=== PATIENT | male | born 1995 | race American Indian/Alaskan Native ===

== ENCOUNTER 2018-12-29 15:48 | Inpatient (IN) | payer OTHER ==
--- NOTE | 2018-12-29 16:06 | Event Note ---
ED Screening Note ED Screening Note: presents for CP and SOB for a week left sided CP feels like tightness no n/v no diaphoresis no leg swelling no radiation of the pain PMHx CKD, HTN takes amlodipine, hydralazine, labatelol states he is only out of amlodipine but took his other meds non smoker non drinker This initial assessment/diagnostic orders/clinical plan/treatment(s) is/are subject to change based on patients health status, clinical progression and re- assessment by fellow clinical providers in the ED. Further treatment and workup at subsequent clinical providers discretion. Patient/guardian urged not to elope from the ED as their condition may be serious if not clinically assessed and managed. Initial orders include: CP protocol
--- NOTE | 2018-12-29 16:59 | XRay Report ---
CHEST 2 VIEWS INDICATION / CLINICAL INFORMATION: Chest pain. COMPARISON: 2 views of the chest from 01/07/2018. FINDINGS: SUPPORT DEVICES: None. HEART / MEDIASTINUM: Stable. LUNGS / PLEURA: Generalized bilateral pulmonary opacities are most significant along the right lung b ase. No significant pleural effusion. No pneumothorax. ADDITIONAL FINDINGS: No significant additional findings. IMPRESSION: 1. Bilateral pulmonary opacities may represent pulmonary edema or pneumonia. Please correlate with th e clinical findings. 2. Stable cardiomegaly. Signer Name: Elgin Parham MD Signed: 12/29/2018 4:54 PM Workstation Name: [id number]
[2018-12-29 17:06] LABS: Basophils # (Auto) 0.1 K/mm3 (0.0-0.1); Basophils % (Auto) 0.9 % (0.0-1.8); Eosinophils # (Auto) 0.2 K/mm3 (0.0-0.4); Eosinophils % (Auto) 2.8 % (0.0-4.3); Hematocrit 35.6 % (35.5-45.6); Hemoglobin 11.6 gm/dl (11.8-15.2); Lymphocytes # (Auto) 1.2 K/mm3 (1.2-5.4); Lymphocytes % (Auto) 15.7 % (13.4-35.0); Mean Corpuscular HGB Conc 33 % (32-34); Mean Corpuscular Volume 91 fl (84-94); Monocytes # (Auto) 0.6 K/mm3 (0.0-0.8); Monocytes % (Auto) 7.7 % (0.0-7.3); Platelet Count 135 K/mm3 (140-440); Red Blood Count 3.94 M/mm3 (3.65-5.03); Red Cell Distribution Width 13.1 % (13.2-15.2)
[2018-12-29] MEDS ORDERED: amLODIPine 5 MG TAB PO ONE (17:06)
--- NOTE | 2018-12-29 17:10 | Emergency Department Report ---
<MONSTER LAWSON - Last Filed: 12/29/18 18:01> ED Chest Pain HPI - General Chief Complaint: Chest Pain Stated Complaint: SOB/CHEST PAIN/ CKD STAGE 3 Time Seen by Provider: 12/29/18 16:04 Source: patient Mode of arrival: Ambulatory Limitations: No Limitations - History of Present Illness Initial Comments: This is a 23-year-old male nontoxic, well nourished in appearance, no acute signs of distress presents to the ED with c/o of left sided chest pain and shortness of breathe x1 week. Patient denies any radiation of pain. Patient describes pain as aching, sharp, and cramping. Patient denies any upper respiratory symptoms. Patient denies any hemoptysis, fever, chills, nausea, vomiting, headache, stiff neck, numbness, tingling, abdominal pain. Patient denies pleuritic chest pain. Patient denies any recent travels or long car rides. Patient denies any recent surgeries or any sick contacts. Patient stated that he takes Norvasc, hydralazine and labetalol for blood pressure which he has taken prior to come to the ER 2 hours ago. Patient stated he has been out of his Norvasc medication. Patient denies any drug allergies. Past medical history includes hypertension and renal disease stage III. MD Complaint: chest pain -: week(s) (1) Pain Location: left chest Pain Radiation: none Severity: mild Severity scale (0 -10): 8 Quality: aching, sharp, other (cramping) Consistency: constant Improves With: nothing Worsens With: nothing re: denies: nausea, vomting, diaphoresis, dyspnea, sense of impending doom Other Symptoms: denies: cough, fever, syncope, rash, acid taste in mouth, leg swelling, palpitations, burping Treatments Prior to Arrival: none Aspirin use within the Past 7 Days: (0) No - Related Data On Oral Contraceptives: No Home Medications Medication Instructions Recorded Confirmed Last Taken Spironolactone 1 tab PO DAILY 01/07/18 01/07/18 01/05/18 Previous Rx's Medication Instructions Recorded Last Taken Type Oseltamivir Phosphate [Tamiflu] 30 mg PO BID 5 Days #10 capsule 01/07/18 Unknown Rx Potassium Chloride [K-Dur] 20 meq PO BID #6 tab 01/07/18 Unknown Rx hydrALAZINE [Apresoline TAB] 100 mg PO QID #120 tab 01/07/18 Unknown Rx Allergies Allergy/AdvReac Type Severity Reaction Status Date / Time No Known Allergies Allergy Verified 11/18/13 00:15 Heart Score - HEART Score History: Moderately suspicious EKG: Non-specific Age: < 45 Risk factors: 1-2 risk factors Troponin: < normal limit HEART Score: 3 ED Review of Systems Constitutional: denies: chills, fever Eyes: denies: eye pain, eye discharge, vision change ENT: denies: ear pain, throat pain Respiratory: shortness of breath. denies: cough, wheezing Cardiovascular: chest pain. denies: palpitations Endocrine: no symptoms reported Gastrointestinal: denies: abdominal pain, nausea, diarrhea Genitourinary: denies: urgency, dysuria Musculoskeletal: denies: back pain, joint swelling, arthralgia Skin: denies: rash, lesions Neurological: denies: headache, weakness, paresthesias Psychiatric: denies: anxiety, depression Hematological/Lymphatic: denies: easy bleeding, easy bruising ED Past Medical Hx - Past Medical History Previous Medical History?: Yes Hx Hypertension: Yes Hx Renal Disease: Yes (CKD) - Surgical History Past Surgical History?: No - Social History Smoking Status: Never Smoker Substance Use Type: None - Medications Home Medications: Home Medications Medication Instructions Recorded Confirmed Last Taken Type Oseltamivir Phosphate [Tamiflu] 30 mg PO BID 5 Days #10 capsule 01/07/18 Unknown Rx Potassium Chloride [K-Dur] 20 meq PO BID #6 tab 01/07/18 Unknown Rx Spironolactone 1 tab PO DAILY 01/07/18 01/07/18 01/05/18 History hydrALAZINE [Apresoline TAB] 100 mg PO QID #120 tab 01/07/18 Unknown Rx ED Physical Exam - General Limitations: No Limitations General appearance: alert, in no apparent distress - Head Head exam: Present: atraumatic, normocephalic - Neck Neck exam: Present: normal inspection, full ROM. Absent: tenderness, meningismus, lymphadenopathy - Respiratory Respiratory exam: Present: normal lung sounds bilaterally. Absent: respiratory distress, wheezes, rales, rhonchi, stridor, chest wall tenderness, accessory muscle use, decreased breath sounds, prolonged expiratory - Cardiovascular Cardiovascular Exam: Present: regular rate, normal rhythm, tachycardia - GI/Abdominal GI/Abdominal exam: Present: soft. Absent: distended, tenderness - Extremities Exam Extremities exam: Present: normal inspection, full ROM - Back Exam Back exam: Present: normal inspection, full ROM. Absent: tenderness, CVA tenderness (R), CVA tenderness (L), muscle spasm, paraspinal tenderness, vertebral tenderness, rash noted - Neurological Exam Neurological exam: Present: alert, oriented X3, normal gait - Psychiatric Psychiatric exam: Present: normal affect, normal mood - Skin Skin exam: Present: warm, dry, intact, normal color. Absent: rash ED Course - Reevaluation(s) Reevaluation #1: 12/29/18 17:09 Patient is speaking in full sentences with no signs of distress noted. - Consultations Consultation #1: 12/29/18 18:01 Patient signed out to [facility] Phan for further evaluation and treatment with pending CT results. ED Medical Decision Making - Lab Data Result diagrams: 12/29/18 16:43 12/29/18 16:43 - Medical Decision Making This is a 23-year-old male that presents with chest pain or shortness of breath and hypertension urgency. Patient is stable currently and was examined by me. Labs pending. CT angio pending. EKG obtained. Norvasc has been given because patient has missed medication. Patient signed out to H[facility] Phan for further evaluation and treatment. - Differential Diagnosis STEMI, NSTEMI, GERD, PE, atypical chest pain, PNA ED Disposition Clinical Impression: Hypertensive emergency Pulmonary edema Qualifiers: Chronicity: acute Qualified Code(s): J81.0 - Acute pulmonary edema Renal failure Qualifiers: Renal failure chronicity: chronic Chronic kidney disease stage: stage 3 ( moderate) Qualified Code(s): N18.3 - Chronic kidney disease, stage 3 (moderate) Disposition: 09 OP ADMIT IP TO THIS HOSP Condition: Stable Instructions: Hypertension (ED), Pulmonary Edema (ED) <LUIS BERNARD - Last Filed: 12/29/18 20:22> ED Chest Pain HPI - History of Present Illness Initial Comments: Per my conversation with the patient patient also states he's been noncompliant with his spironolactone as well as his Norvasc. Heart Score - HEART Score Troponin: 1-3x normal limit ED Review of Systems ROS: Stated complaint: SOB/CHEST PAIN/ CKD STAGE 3 Other details as noted in HPI ED Physical Exam - Eye Eye exam: Present: PERRL, EOMI - ENT ENT exam: Present: normal orophraynx, mucous membranes moist - Respiratory Respiratory exam: Present: rales (bilateral base) - Cardiovascular Cardiovascular Exam: Present: normal heart sounds ED Course Vital Signs 12/29/18 12/29/18 12/29/18 16:05 17:10 17:17 Temperature 98.0 F Pulse Rate 93 H 82 83 Respiratory 18 20 Rate Blood Pressure 230/152 201/121 Blood Pressure [Left] O2 Sat by Pulse 97 99 Oximetry 12/29/18 12/29/18 18:19 19:06 Temperature Pulse Rate 81 81 Respiratory 18 Rate Blood Pressure 198/120 Blood Pressure 197/111 [Left] O2 Sat by Pulse 99 Oximetry JONI score - Joni Score Age > 65: (0) No Aspirin use within the Past 7 Days: (0) No 3 or more CAD Risk Factors: (0) No 2 or more Angina events in past 24 hrs: (0) No Known CAD with more than 50% Stenosis: (0) No Elevated Cardiac Markers: (1) Yes ST Deviation Greater than 0.5mm: (0) No JONI Score: 1 ED Medical Decision Making - Lab Data Result diagrams: 12/29/18 16:43 12/29/18 16:43 Lab Results 12/29/18 12/29/18 12/29/18 Range/Units 16:43 16:43 16:43 WBC 7.6 (4.5-11.0) K/mm3 RBC 3.94 (3.65-5.03) M/mm3 Hgb 11.6 L (11.8-15.2) gm/dl Hct 35.6 (35.5-45.6) % MCV 91 (84-94) fl MCH 29 (28-32) pg MCHC 33 (32-34) % RDW 13.1 L (13.2-15.2) % Plt Count 135 L (140-440) K/mm3 Lymph % (Auto) 15.7 (13.4-35.0) % [place] % (Auto) 7.7 H (0.0-7.3) % Eos % (Auto) 2.8 (0.0-4.3) % Baso % (Auto) 0.9 (0.0-1.8) % Lymph # 1.2 (1.2-5.4) K/mm3 [place] # 0.6 (0.0-0.8) K/mm3 Eos # 0.2 (0.0-0.4) K/mm3 Baso # 0.1 (0.0-0.1) K/mm3 Seg Neutrophils % 72.9 H (40.0-70.0) % Seg Neutrophils # 5.5 (1.8-7.7) K/mm3 PT 14.2 (12.2-14.9) Sec. INR 1.11 (0.87-1.13) APTT 30.0 (24.2-36.6) Sec. D-Dimer (0-234) ng/mlDDU Sodium 141 (137-145) mmol/L Potassium 3.5 L (3.6-5.0) mmol/L Chloride 103.0 (98-107) mmol/L Carbon Dioxide 24 (22-30) mmol/L Anion Gap 18 mmol/L BUN 26 H (9-20) mg/dL Creatinine 2.7 H (0.8-1.5) mg/dL Estimated GFR 36 ml/min BUN/Creatinine Ratio 10 % Glucose 101 H (75-100) mg/dL Calcium 8.6 (8.4-10.2) mg/dL Phosphorus (2.5-4.5) mg/dL Magnesium (1.7-2.3) mg/dL Total Bilirubin 0.40 (0.1-1.2) mg/dL AST 24 (5-40) units/L ALT 24 (7-56) units/L Alkaline Phosphatase 68 (35-129) units/L Troponin T 0.054 H (0.00-0.029) ng/mL NT-Pro-B Natriuret Pep (0-450) pg/mL Total Protein 6.4 (6.3-8.2) g/dL Albumin 3.7 L (3.9-5) g/dL Albumin/Globulin Ratio 1.4 % Triglycerides 49 (2-149) mg/dL Cholesterol 130 (50-199) mg/dL LDL Cholesterol Direct 64 (50-130) mg/dL HDL Cholesterol 58 (40-59) mg/dL Cholesterol/HDL Ratio 2.24 % 1112/29/18 12/29/18 Range/Units 16:43 17:02 18:37 WBC (4.5-11.0) K/mm3 RBC (3.65-5.03) M/mm3 Hgb (11.8-15.2) gm/dl Hct (35.5-45.6) % MCV (84-94) fl MCH (28-32) pg MCHC (32-34) % RDW (13.2-15.2) % Plt Count (140-440) K/mm3 Lymph % (Auto) (13.4-35.0) % [place] % (Auto) (0.0-7.3) % Eos % (Auto) (0.0-4.3) % Baso % (Auto) (0.0-1.8) % Lymph # (1.2-5.4) K/mm3 [place] # (0.0-0.8) K/mm3 Eos # (0.0-0.4) K/mm3 Baso # (0.0-0.1) K/mm3 Seg Neutrophils % (40.0-70.0) % Seg Neutrophils # (1.8-7.7) K/mm3 PT (12.2-14.9) Sec. INR (0.87-1.13) APTT (24.2-36.6) Sec. D-Dimer 410.49 H (0-234) ng/mlDDU Sodium (137-145) mmol/L Potassium (3.6-5.0) mmol/L Chloride (98-107) mmol/L Carbon Dioxide (22-30) mmol/L Anion Gap mmol/L BUN (9-20) mg/dL Creatinine (0.8-1.5) mg/dL Estimated GFR ml/min BUN/Creatinine Ratio % Glucose (75-100) mg/dL Calcium (8.4-10.2) mg/dL Phosphorus 3.70 (2.5-4.5) mg/dL Magnesium 2.00 (1.7-2.3) mg/dL Total Bilirubin (0.1-1.2) mg/dL AST (5-40) units/L ALT (7-56) units/L Alkaline Phosphatase (35-129) units/L Troponin T 0.053 H (0.00-0.029) ng/mL NT-Pro-B Natriuret Pep 2257 H (0-450) pg/mL Total Protein (6.3-8.2) g/dL Albumin (3.9-5) g/dL Albumin/Globulin Ratio % Triglycerides (2-149) mg/dL Cholesterol (50-199) mg/dL LDL Cholesterol Direct (50-130) mg/dL HDL Cholesterol (40-59) mg/dL Cholesterol/HDL Ratio % - EKG Data -: EKG Interpreted by Wi - EKG Data 12/29/18 20:14 EKG shows sinus rhythm rate of 86. [place] is normal intervals are normal. There is T-wave inversions in the lateral leads. There is no ST segment elevation or depression. Time of interpretation 1600 - Radiology Data [facility] [address] [place] [address] XRay Report Signed Patient: AARON YAO MR#: [id number] [birth year] : 1995 Acct:[id number] Age/Sex: 23 / M ADM Date: 12/29/18 Loc: ED Attending Dr: Ordering Physician: DANICA NAJERA Date of Service: 12/29/18 Procedure(s): XR chest routine 2V Accession Number(s): [id number] cc: DANICA NAJERA Fluoro Time In Minutes: CHEST 2 VIEWS INDICATION / CLINICAL INFORMATION: Chest pain. COMPARISON: 2 views of the chest from 01/07/2018. FINDINGS: SUPPORT DEVICES: None. HEART / MEDIASTINUM: Stable. LUNGS / PLEURA: Generalized bilateral pulmonary opacities are most significant along the right lung base. No significant pleural effusion. No pneumothorax. ADDITIONAL FINDINGS: No significant additional findings. IMPRESSION: 1. Bilateral pulmonary opacities may represent pulmonary edema or pneumonia. Please correlate with the clinical findings. 2. Stable cardiomegaly. Signer Name: Elgin Parham MD Signed: 12/29/2018 4:54 PM Workstation Name: [id number] . NUCLEAR MEDICINE VENTILATION/PERFUSION LUNG SCAN INDICATION / CLINICAL INFORMATION: Chest pain, shortness of breath. TECHNIQUE: 25.6 mCi of Xe-133 were given by inhalation. 4.04 mCi of Tc-99m MAA were given by IV. COMPARISON: Chest radiograph dated 12/29/2018. FINDINGS: VENTILATION: No significant ventilation defects. PERFUSION: Multiple segmental perfusion defects, for example upper right lung, mid left lung posteriorly. ADDITIONAL FINDINGS: None. IMPRESSION: 1. Indeterminate probability for pulmonary embolism. There are mismatched ventilation/perfusion defects, but there are also radiographic abnormalities in the regions of diminished perfusion. - Medical Decision Making Patient is a 23-year-old gentleman who presented with shortness of breath chest pain and hypertensive emergency.. Patient patient's chest pain shortness of breath his improved after reduction of his blood pressure. Patient blood pressure went from 230 systolic down to 200 with taken his oral medications that he takes at home. A dose of labetalol be given at the time of admission. Patient's VQ scan is soft showing an indeterminate risk of PE. Patient does goldman ve pulmonary edema on his chest x-ray and the mismatches likely secondary to his edema. Patient's renal insufficiency is stable and appears to be a stage III renal failure. Patient given Lasix for his pulmonary edema. Patient will need to be admitted for further evaluation. Patient is a echocardiogram to determine his ejection fraction. The blood pressure needs to continue to be managed as well. Critical Care Time: Yes (30) Critical care attestation.: If time is entered above; I have spent that time in minutes in the direct care of this critically ill patient, excluding procedure time. ED Disposition Is pt being admited?: Yes Does the pt Need Aspirin: Yes Time of Disposition: 20:22
[2018-12-29 17:15] LABS: INR 1.11 (0.87-1.13)
[2018-12-29 17:27] LABS: Albumin 3.7 g/dL (3.9-5); Calcium 8.6 mg/dL (8.4-10.2)
[2018-12-29] MEDS ORDERED: SODIUM CHLORIDE 0.9% 1000 ML 1,000 ML IV ONE (17:41)
[2018-12-29] MEDS ORDERED: MORPHINE 4 MG/1 ML INJ IV ONE (17:42)
[2018-12-29] MEDS ORDERED: ONDANSETRON 4 MG/2 ML INJ IV ONE (17:42)
[2018-12-29 17:46] LABS: Chol/HDL Ratio 2.24 %
[2018-12-29] MEDS ORDERED: FUROSEMIDE 40 MG/4 ML INJ IV ONE (17:52)
[2018-12-29] MEDS ORDERED: hydrALAZINE 25 MG TAB PO ONE (19:01)
--- NOTE | 2018-12-29 20:03 | Nuclear Medicine Report ---
NUCLEAR MEDICINE VENTILATION/PERFUSION LUNG SCAN INDICATION / CLINICAL INFORMATION: Chest pain, shortness of breath. TECHNIQUE: 25.6 mCi of Xe-133 were given by inhalation. 4.04 mCi of Tc-99m MAA were given by IV. COMPARISON: Chest radiograph dated 12/29/2018. FINDINGS: VENTILATION: No significant ventilation defects. PERFUSION: Multiple segmental perfusion defects, for example upper right lung, mid left lung posterio rly. ADDITIONAL FINDINGS: None. IMPRESSION: 1. Indeterminate probability for pulmonary embolism. There are mismatched ventilation/perfusion defec ts, but there are also radiographic abnormalities in the regions of diminished perfusion. Signer Name: Samson Woodruff MD Signed: 12/29/2018 7:59 PM Workstation Name: [id number]
[2018-12-29] MEDS ORDERED: ENOXAPARIN 100 MG/1 ML INJ SUB-Q ONE (20:24)
[2018-12-29] MEDS ORDERED: ASPIRIN 325 MG TAB PO ONE (20:24)
[2018-12-30] MEDS: hydrALAZINE 20 MG/1 ML INJ IV PRN ×2 (01:04→01:39)
[2018-12-30] MEDS ORDERED: oxyCODONE /ACETAMINOPHEN 5-325MG TAB PO PRN (01:41)
[2018-12-30] MEDS ORDERED: ACETAMINOPHEN 325 MG TAB PO PRN (01:41)
[2018-12-30] MEDS ORDERED: ONDANSETRON 4 MG/2 ML INJ IV PRN (01:41)
--- NOTE | 2018-12-30 01:45 | History and Physical Report ---
History of Present Illness Date of examination: 12/30/18 Date of admission: 12/29/18 20:22 History of present illness: 23 -year-old man with a history of hypertension, chronic kidney disease comes emergency room with complaints of shortness of breath, chest pain 4 days. Pain is in the left chest which he describes a tightness, intermittent every 10 minutes, intensity with 10, no radiation, cannot identify exacerbating or relieving factors. Denies nausea vomiting, diaphoresis or palpitation. Patient stated he is been out of his Norvas for one week but he was compliant with his hydralazine and labetalol. He lost 100 pounds in the last 2 years. Denies recent travel, cough, fever Review of systems Constitutional: no weight loss, chills, fever Ears, eyes, nose, mouth and throat: no nasal congestion, no nasal discharge, no sinus pressure, no vision change, no red eye. Neck: No neck pain or rigidity. Cardiovascular: no palpitations Respiratory: no cough, shortness of breath Gastrointestinal: no abdominal pain hematochezia Genitourinary : no frequency , no hematuria Musculoskeletal: no joint swelling or muscle ache Integumentary: no rash, no pruritis Neurological: no parathesias, no numbness, no focal weakness Endocrine: no cold or heat intolerance, no polyuria or polydipsia Hematologic/Lymphatic: no easy bruising, no easy bleeding, no gland swelling Allergic/Immunologic: no urticaria, no angioedema. PAST MEDICAL HISTORY hypertension, chronic kidney disease PAST SURGICAL HISTORY: None SOCIAL HISTORY: No drugs, tobacco, alcohol FAMILY HISTORY: Hypertension Medications and Allergies Allergies Allergy/AdvReac Type Severity Reaction Status Date / Time No Known Allergies Allergy Verified 11/18/13 00:15 Home Medications Medication Instructions Recorded Confirmed Last Taken Type Labetalol 300mg TAB 1 tab PO TID #270 12/31/18 Unknown Rx Labetalol HCl [Labetalol 300mg TAB] 300 mg PO TID #270 tablet 12/31/18 Unknown Rx Spironolactone [Aldactone] 25 mg PO QDAY #90 tablet 12/31/18 Unknown Rx amLODIPine 10 mg PO DAILY #90 12/31/18 Unknown Rx amLODIPine 10 mg PO DAILY #90 tab 12/31/18 Unknown Rx hydrALAZINE [Apresoline TAB] 100 mg PO QID #360 tab 12/31/18 Unknown Rx Active Meds: Active Medications Acetaminophen (Tylenol) 650 mg PO Q4H PRN PRN Reason: Pain MILD(1-3)/Fever >100.5/WEST Hydralazine HCl (Apresoline) 10 mg IV Q4HR PRN PRN Reason: Blood Pressure Last Admin: 12/30/18 01:39 Dose: 10 mg Documented by: Ondansetron HCl (Zofran) 4 mg IV Q8H PRN PRN Reason: Nausea And Vomiting Sodium Chloride (Sodium Chloride Flush Syringe 10 Ml) 10 ml IV BID DARNELL Exam - Physical Exam Narrative exam: Gen. appearance: Patient lying in bed, no apparent distress HEENT: Normocephalic, atraumatic, pupils equally round and reactive to light, extraocular movement intact, and no sclericterus,. No JVD or thyromegaly or nodule,neck supple, no carotid bruit ,mucous membranes moist, no exudate or erythema Heart: S1, S2, regular rate and rhythm Lungs: Clear bilaterally, breathing comfortable Abdomen: Positive bowel sounds, non-tender, nondistended, no organomegaly Extremity:no edema cyanosis, clubbing Skin: no rash, dry, warm Neuro: Oriented 3, cranial nerves II-12 intact, speech is fluent, motor and sensory intact - Constitutional Vitals: Temp Pulse Resp BP Pulse Ox 98.6 F 81 18 199/126 93 12/30/18 00:48 12/30/18 01:39 12/30/18 00:48 12/30/18 01:39 12/30/18 00:48 Results - Labs CBC & Chem 7: 12/30/18 04:45 12/30/18 04:45 Labs: Abnormal lab results 12/29/18 12/29/18 12/29/18 Range/Units 16:43 16:43 16:43 Hgb 11.6 L (11.8-15.2) gm/dl RDW 13.1 L (13.2-15.2) % Plt Count 135 L (140-440) K/mm3 [place] % (Auto) 7.7 H (0.0-7.3) % Seg Neutrophils % 72.9 H (40.0-70.0) % D-Dimer (0-234) ng/mlDDU Potassium 3.5 L (3.6-5.0) mmol/L BUN 26 H (9-20) mg/dL Creatinine 2.7 H (0.8-1.5) mg/dL Glucose 101 H (75-100) mg/dL Troponin T 0.054 H (0.00-0.029) ng/mL NT-Pro-B Natriuret Pep 2257 H (0-450) pg/mL Albumin 3.7 L (3.9-5) g/dL 12/29/18 12/29/18 Range/Units 17:02 18:37 Hgb (11.8-15.2) gm/dl RDW (13.2-15.2) % Plt Count (140-440) K/mm3 [place] % (Auto) (0.0-7.3) % Seg Neutrophils % (40.0-70.0) % D-Dimer 410.49 H (0-234) ng/mlDDU Potassium (3.6-5.0) mmol/L BUN (9-20) mg/dL Creatinine (0.8-1.5) mg/dL Glucose (75-100) mg/dL Troponin T 0.053 H (0.00-0.029) ng/mL NT-Pro-B Natriuret Pep (0-450) pg/mL Albumin (3.9-5) g/dL - Imaging and Cardiology EKG: image reviewed Chest x-ray: report reviewed Assessment and Plan Assessment Hypertensive urgency Chest pain Elevated troponin Intermediate probability for pulmonary emboli Pulmonary edema secondary to hypertension uncontrolled Chronic kidney disease Thrombocytopenia Hypokalemia Obesity Plan Admit to medicine Patient has received several antihypertensive, his blood pressure still uncontrolled He was sent to the telemetry floor, will give a dose of hydralazine If still uncontrolled, transferred to the ICU Check cardiac enzymes, echo, consult cardiology Check doppler of the lower extremities,hold further lovenox, patient thrombocytopenic consult pulmonary, replete potassium Lifestyle modification discussed with patient and mother DVT prophylaxis Addendum Blood pressure is still uncontrolled repeated blood pressure with a larger cuff and after hydralazine shows blood pressure still 204/124 Transfer to ICU, start cardene drip, consult critical care
[2018-12-30] MEDS ORDERED: POTASSIUM CHLORIDE ER 20 MEQ TAB PO ONE (01:46)
[2018-12-30] MEDS: niCARdipine 50 MG in SODIUM CHLORIDE 0.9% 250ML 230 ML IV SCH ×2 (02:58→09:44)
[2018-12-30 05:04] LABS: Basophils # (Auto) 0.1 K/mm3 (0.0-0.1); Basophils % (Auto) 0.9 % (0.0-1.8); Eosinophils # (Auto) 0.3 K/mm3 (0.0-0.4); Eosinophils % (Auto) 3.8 % (0.0-4.3); Hematocrit 36.9 % (35.5-45.6); Hemoglobin 12.2 gm/dl (11.8-15.2); Lymphocytes # (Auto) 1.4 K/mm3 (1.2-5.4); Lymphocytes % (Auto) 20.4 % (13.4-35.0); Mean Corpuscular HGB Conc 33 % (32-34); Mean Corpuscular Volume 90 fl (84-94); Monocytes # (Auto) 0.6 K/mm3 (0.0-0.8); Monocytes % (Auto) 7.9 % (0.0-7.3); Platelet Count 128 K/mm3 (140-440); Red Blood Count 4.09 M/mm3 (3.65-5.03); Red Cell Distribution Width 13.2 % (13.2-15.2)
[2018-12-30 05:30] LABS: Calcium 8.8 mg/dL (8.4-10.2); Creatine Kinase MB 5.5 ng/mL (0.0-4.0)
[2018-12-30 09:01] LABS: Creatine Kinase MB 5.1 ng/mL (0.0-4.0)
--- NOTE | 2018-12-30 10:21 | Consultation ---
History of Present Illness Consult date: 12/30/18 Requesting physician: OLGA LIDIA LOVE Consult reason: chest pain History of present illness: The pt is a 23 -year-old man with a history of hypertension and CKD. He is previously unknown to our practice. His PCP is Dr. Tse and vice president regulatory is Dr. Inman. He presented with c/o shortness of breath and chest pain 2 days prior to arrival. He describes his chest pain as a nonexertional, nonradiating midsternal squeezing pain which had no clear aggravating or alleviating factors. The pain resolved shortly after arrival to ED and has not recurred. He also c/o SOB which is mostly present on exertion although he is sometimes also SOB at rest. He denies any known prior cardiac issues. He lost 100 pounds in the last 2 years via diet and exercise and has not noticed any exercise intolerance recently. He is employed and is a student. He denies any tobacco, ETOH or illicit drug use. Patient stated he is been out of his Norvas for one week but he was compliant with his hydralazine and labetalol. Admission BP noted to 230/152 and he was initiated on cardene gtt and he remains on cardene gtt on evaluation. DDimer was found to be elevated - V/Q scan indeterminate prob for PE. CXR with some pulmonary edema, cardiomegaly and questionable infiltrates. Pt denies any cough, fever or chills. Past History Past Medical History: hypertension, other (ckd) Social history: lives with family. denies: smoking, alcohol abuse Medications and Allergies Allergies Allergy/AdvReac Type Severity Reaction Status Date / Time No Known Allergies Allergy Verified 11/18/13 00:15 Home Medications Medication Instructions Recorded Confirmed Last Taken Type Spironolactone 1 tab PO DAILY 01/07/18 12/29/18 12/29/18 History hydrALAZINE [Apresoline TAB] 100 mg PO QID #120 tab 01/07/18 12/29/18 12/29/18 Rx Labetalol 300mg TAB 1 tab PO TID 12/29/18 12/29/18 12/29/18 21:04 History amLODIPine 10 mg PO DAILY 12/29/18 12/29/18 12/29/18 History Active Meds: Active Medications Acetaminophen (Tylenol) 650 mg PO Q4H PRN PRN Reason: Pain MILD(1-3)/Fever >100.5/WEST Nicardipine HCl 50 mg/ Sodium (Chloride) 250 mls @ 25 mls/hr IV TITR [facility]; Protocol Last Admin: 12/30/18 09:44 Dose: 10 mg/hr, 50 mls/hr Documented by: Ondansetron HCl (Zofran) 4 mg IV Q8H PRN PRN Reason: Nausea And Vomiting Oxycodone/Acetaminophen (Percocet 5/325) 1 tab PO Q6H PRN PRN Reason: Pain, Moderate (4-6) Sodium Chloride (Sodium Chloride Flush Syringe 10 Ml) 10 ml IV BID [facility] Last Admin: 12/30/18 09:45 Dose: 10 ml Documented by: Sodium Chloride (Sodium Chloride Flush Syringe 10 Ml) 10 ml IV PRN PRN PRN Reason: LINE FLUSH Review of Systems Constitutional: no weight loss, no weight gain, no fever, no chills, no sweats Ears, nose, mouth and throat: no ear pain, no nose pain, no sinus pressure, no sinus pain Cardiovascular: chest pain, shortness of breath, dyspnea on exertion, high blood pressure, no orthopnea, no palpitations, no rapid/irregular heart beat, no edema, no syncope, no lightheadedness, no leg edema, no decreased exercise tolerance Respiratory: shortness of breath, dyspnea on exertion, no cough, no congestion, no wheezing, no pain on inspiration Gastrointestinal: no abdominal pain, no nausea, no vomiting, no diarrhea, no constipation, no change in bowel habits Genitourinary Male: no dysuria, no hematuria, no flank pain, no discharge, no urinary frequency, no urinary hesitancy Musculoskeletal: no neck stiffness, no neck pain, no shooting arm pain, no arm numbness/tingling, no low back pain, no shooting leg pain Integumentary: no rash, no redness, no sores, no wounds Neurological: no head injury, no paralysis, no weakness, no parathesias, no numbness, no tingling, no seizures, no syncope Psychiatric: no anxiety Endocrine: no cold intolerance, no heat intolerance Hematologic/Lymphatic: no easy bruising, no easy bleeding Allergic/Immunologic: no urticaria Physical Examination Vital Signs Temp Pulse Resp BP Pulse Ox 98.0 F 93 H 18 230/152 97 11/24/19 16:05 12/29/18 16:05 12/29/18 16:05 12/29/18 16:05 12/29/18 16:05 General appearance: no acute distress HEENT: Positive: PERRL, Normocephaly, Mucus Membranes Moist Neck: Positive: neck supple, trachea midline Cardiac: Positive: Reg Rate and Rhythm, S1/S2, Systolic Murmur Lungs: Positive: Decreased Breath Sounds Neuro: Positive: Grossly Intact Abdomen: Negative: Tender Skin: Negative: Rash Musculoskeletal: No Pain Extremities: Absent: edema Results 12/30/18 04:45 12/30/18 04:45 Cardiac Enzymes 12/29/18 12/30/18 12/30/18 Range/Units 16:43 04:45 07:50 AST 24 (5-40) units/L CK-MB (CK-2) 5.5 H 5.1 H (0.0-4.0) ng/mL Coagulation 12/29/18 Range/Units 16:43 PT 14.2 (12.2-14.9) Sec. INR 1.11 (0.87-1.13) APTT 30.0 (24.2-36.6) Sec. Lipids 12/29/18 Range/Units 16:43 Triglycerides 49 (2-149) mg/dL Cholesterol 130 (50-199) mg/dL HDL Cholesterol 58 (40-59) mg/dL Cholesterol/HDL Ratio 2.24 % CBC 12/29/18 12/30/18 Range/Units 16:43 04:45 WBC 7.6 7.0 (4.5-11.0) K/mm3 RBC 3.94 4.09 (3.65-5.03) M/mm3 Hgb 11.6 L 12.2 (11.8-15.2) gm/dl Hct 35.6 36.9 (35.5-45.6) % Plt Count 135 L 128 L (140-440) K/mm3 Lymph # 1.2 1.4 (1.2-5.4) K/mm3 [place] # 0.6 0.6 (0.0-0.8) K/mm3 Eos # 0.2 0.3 (0.0-0.4) K/mm3 Baso # 0.1 0.1 (0.0-0.1) K/mm3 Comprehensive Metabolic Panel 12/29/18 12/30/18 Range/Units 16:43 04:45 Sodium 141 141 (137-145) mmol/L Potassium 3.5 L 3.3 L (3.6-5.0) mmol/L Chloride 103.0 100.3 (98-107) mmol/L Carbon Dioxide 24 25 (22-30) mmol/L BUN 26 H 24 H (9-20) mg/dL Creatinine 2.7 H 2.7 H (0.8-1.5) mg/dL Glucose 101 H 107 H (75-100) mg/dL Calcium 8.6 8.8 (8.4-10.2) mg/dL AST 24 (5-40) units/L ALT 24 (7-56) units/L Alkaline Phosphatase 68 (35-129) units/L Total Protein 6.4 (6.3-8.2) g/dL Albumin 3.7 L (3.9-5) g/dL - Imaging and Cardiology Echo: pending EKG: report reviewed, image reviewed EKG interpretations - Telemetry EKG Rhythm: Sinus Rhythm - EKG Sinus rhythms and dysrhythmias: sinus rhythm Assessment and Plan Pt presented with hypertensive emergency, admission BP noted to 230/152 and he was initiated on cardene gtt and he remains on cardene gtt on evaluation. DDimer was found to be elevated - V/Q scan indeterminate prob for PE. CXR with some pulmonary edema, cardiomegaly and questionable infiltrates. Pt denies any cough, fever or chills. Troponins are noted to be minimally elevated which currently appears nonspecific. Will obtain echo and optimize anti-hypertensive regimen, wean off cardene gtt as tolerated. Can consider stress test once BPs are optimized. Recommend nephrology consultation per primary. Pt may require additional imaging to r/o PE if his renal function will permit. [place] records obtained. Pt reports he was hospitalized at [facility] in 09/2018 and he had echo done at that time. We were able to obtain a discharge summary from 08/30/2017 which states pt was treated for hypertensive emergency, CKD, hypokalemia and suspected NITISH. No echo on record. Pt was recommended OP sleep study. His mother at bedside states that pt had sleep study many years ago and was told the study was "ok" but she has noted pt to be "breathing abnormally" while sleeping at night recently. He may benefit from repeat OP sleep study as untreated NITISH can contribute to resistant hypertension. The patient has been seen in conjunction with Dr. Briggs who agrees with the assessment and plan of care. - Patient Problems (1) Hypertensive emergency Current Visit: Yes Status: Acute (2) Chest pain Current Visit: Yes Status: Acute (3) Dyspnea Current Visit: Yes Status: Acute (4) Elevated d-dimer Current Visit: Yes Status: Acute (5) Pulmonary edema Current Visit: Yes Status: Acute Qualifiers: Chronicity: acute Qualified Code(s): J81.0 - Acute pulmonary edema (6) Renal failure Current Visit: Yes Status: Chronic Qualifiers: Renal failure chronicity: chronic Chronic kidney disease stage: stage 3 (moderate) Qualified Code(s): N18.3 - Chronic kidney disease, stage 3 (moderat e) (7) Hypokalemia Current Visit: Yes Status: Acute (8) Elevated troponin Current Visit: Yes Status: Acute
--- NOTE | 2018-12-30 10:23 | Consultation ---
History of Present Illness Consult date: 12/30/18 Requesting physician: CAROLYN ALLEN Reason for consult: other (Hypertensive emergency, chest pain, dyspnea) History of present illness: 23 -year-old man with a history of hypertension, chronic kidney disease comes em ergency room with complaints of shortness of breath, chest pain 4 days. Pain is in the left chest which he describes a tightness, intermittent every 10 minutes, intensity with 10, no radiation, cannot identify exacerbating or relieving factors. Denies nausea vomiting, diaphoresis or palpitation. Patient stated [facility] but he was compliant with his hydralazine and labetalol. He lost 100 pounds in the last 2 years. Denies recent travel, cough, fever. He was admitted to the ICU on a Nicardipine infusion and I have been consulted for critical care management. Patient was seen and examined. Vitals, labs, medications, chart and imaging reviewed. He denies any chest pain at this time, no shortness of breath. Remains on a Nicardipine infusion, but just received his oral antihypertensives. Mother is at the bedside Review of systems Constitutional: no weight loss, chills, fever Ears, eyes, nose, mouth and throat: no nasal congestion, no nasal discharge, no sinus pressure, no vision change, no red eye. Neck: No neck pain or rigidity. Cardiovascular: no palpitations Respiratory: no cough, shortness of breath Gastrointestinal: no abdominal pain hematochezia Genitourinary : no frequency , no hematuria Musculoskeletal: no joint swelling or muscle ache Integumentary: no rash, no pruritis Neurological: no parathesias, no numbness, no focal weakness Endocrine: no cold or heat intolerance, no polyuria or polydipsia Hematologic/Lymphatic: no easy bruising, no easy bleeding, no gland swelling Allergic/Immunologic: no urticaria, no angioedema. PAST MEDICAL HISTORY hypertension, chronic kidney disease PAST SURGICAL HISTORY: None SOCIAL HISTORY: No drugs, tobacco, alcohol FAMILY HISTORY: Hypertension Medications and Allergies Allergies Allergy/AdvReac Type Severity Reaction Status Date / Time No Known Allergies Allergy Verified 11/18/13 00:15 Home Medications Medication Instructions Recorded Confirmed Last Taken Type Spironolactone 1 tab PO DAILY 01/07/18 12/29/18 12/29/18 History hydrALAZINE [Apresoline TAB] 100 mg PO QID #120 tab 01/07/18 12/29/18 12/29/18 Rx Labetalol 300mg TAB 1 tab PO TID 12/29/18 12/29/18 12/29/18 21:04 History amLODIPine 10 mg PO DAILY 12/29/18 12/29/18 12/29/18 History Active Meds: Active Medications Acetaminophen (Tylenol) 650 mg PO Q4H PRN PRN Reason: Pain MILD(1-3)/Fever >100.5/WEST Nicardipine HCl 50 mg/ Sodium (Chloride) 250 mls @ 25 mls/hr IV TITR [facility]; Protocol Last Admin: 12/30/18 09:44 Dose: 10 mg/hr, 50 mls/hr Documented by: Ondansetron HCl (Zofran) 4 mg IV Q8H PRN PRN Reason: Nausea And Vomiting Oxycodone/Acetaminophen (Percocet 5/325) 1 tab PO Q6H PRN PRN Reason: Pain, Moderate (4-6) Sodium Chloride (Sodium Chloride Flush Syringe 10 Ml) 10 ml IV BID [facility] Last Admin: 12/30/18 09:45 Dose: 10 ml Documented by: Sodium Chloride (Sodium Chloride Flush Syringe 10 Ml) 10 ml IV PRN PRN PRN Reason: LINE FLUSH Review of Systems All systems: negative (as in HPI) Physical Examination Vital signs: Vital Signs Temp Pulse Resp BP Pulse Ox 98.0 F 93 H 18 230/152 97 12/29/18 16:05 12/29/18 16:05 12/29/18 16:05 12/29/18 16:05 12/29/18 16:05 General appearance: no acute distress, alert, other (obese) Eyes: non-icteric ENT: oropharynx moist Neck: supple, no lymphadenopathy, no JVD Effort: normal Ascultation: Bilateral: diminished breath sounds Cardiovascular: regular rate and rhythm, other (S1,S2, no murmurs, gallops or rubs) Gastrointestinal: normoactive bowel sounds, soft, non-tender, non-distended Integumentary: normal Extremities: no cyanosis, no edema, pink and warm, pulses normal, no ischemia or petechiae normal mental status, non-focal exam, pupils equal and round, CN II-XII normal, motor strength normal and mood appropriate, affect normal Results - Laboratory Findings CBC and BMP: 12/30/18 04:45 12/30/18 04:45 PT/INR, D-dimer PT 14.2 Sec. (12.2-14.9) 12/29/18 16:43 INR 1.11 (0.87-1.13) 12/29/18 16:43 D-Dimer 410.49 ng/mlDDU (0-234) H 12/29/18 17:02 Abnormal lab findings: Abnormal Labs 12/29/18 12/29/18 12/29/18 16:43 16:43 16:43 Hgb 11.6 L RDW 13.1 L Plt Count 135 L [place] % (Auto) 7.7 H Seg Neutrophils % 72.9 H D-Dimer Potassium 3.5 L BUN 26 H Creatinine 2.7 H Glucose 101 H Total Creatine Kinase CK-MB (CK-2) Troponin T 0.054 H NT-Pro-B Natriuret Pep 2257 H Albumin 3.7 L 12/29/18 12/29/18 12/30/18 17:02 18:37 04:45 Hgb RDW Plt Count 128 L [place] % (Auto) 7.9 H Seg Neutrophils % D-Dimer 410.49 H Potassium BUN Creatinine Glucose Total Creatine Kinase CK-MB (CK-2) Troponin T 0.053 H NT-Pro-B Natriuret Pep Albumin 12/30/18 12/30/18 12/30/18 04:45 04:45 07:50 Hgb RDW Plt Count [place] % (Auto) Seg Neutrophils % D-Dimer Potassium 3.3 L BUN 24 H Creatinine 2.7 H Glucose 107 H Total Creatine Kinase 576 H 562 H CK-MB (CK-2) 5.5 H 5.1 H Troponin T 0.051 H 0.061 H NT-Pro-B Natriuret Pep Albumin - Diagnostic Findings Chest x-ray: report reviewed (Cardiomegaly with bilateral infiltrates- pulmoanry edema ) Additional studies: V/Q- Indeterminate probability scan Assessment and Plan -Hypertensive emergency -Indeterminate probability V/Q -Poorly controlled HTN -CKD 3 -Probable sleep apnea -Morbid obesity -Wean off cardene infusion -Get transthoracic echocardiogram -Elevated d-dimer with indeterminate probability V/Q scan. ON review of chest imaging this appears to be pulmonary edema. His d-dimer could be elevated from heat failure and CKD. Get lower extremity Doppler to r/o DVT. -Out patient sleep studies in the setting of poorly controlled hypertension despite maximal therapies -Life style modifications, continue with weight loss therapies -Avoid nephrotoxins and adjust medications for GFR/CrCL -VTE prophyalxis, early ambulation -Heart failure measures -Follow up CXR in 48 hours -OK to transfer out f the ICU once he is off cardene infusion Discussed care plan with the patient and his mother at the bedside. All their questions were answered.
[2018-12-30] MEDS ORDERED: LABETALOL 300 MG PO SCH (10:37)
[2018-12-30] MEDS: amLODIPine 10 MG TAB PO SCH (11:00)
[2018-12-30] MEDS: hydrALAZINE 100 MG TAB PO SCH ×3 (14:00→23:46)
--- NOTE | 2018-12-30 16:23 | Progress Note ---
Assessment and Plan Assessment and plan: 23-year-old man who presented with chest pain and hypertensive urgency vq scan- intermediate probability for PE Patient has been on IV drips for BP management, improved will transition to oral BP meds Discussed with cardiology, echo, will obtain lower extremity Dopplers Diagnosis Chest pain Hypertensive urgency CKD stage III-IV Chronic hypokalemia for which he takes Aldactone History Interval history: Review of systems Constitutional: No fevers, no malaise, no joint pains CVS: No chest pain, no orthopnea, no pedal edema GI: No abdominal pain, no diarrhea, no vomiting, no constipation Respiratory: , no wheezing, no coughing Hospitalist Physical - Physical exam Narrative exam: General.: Appears well, no distress, nontoxic HEENT: Moist mucous membranes, extraocular muscles intact, no lymphadenopathy Neck: supple Cardiac: S1-S2 heard Lungs: clear to auscultation bilaterally Abdomen: soft , nontender, nondistended, bowel sounds positive Extremities: no edema clubbing or cyanosis Skin: no rash or lesions Neurologic: no gross focal deficits Psych: calm, and cooperative - Constitutional Vitals: Temp Pulse Resp BP Pulse Ox 98.8 F 81 17 148/83 96 12/30/18 12:00 12/30/18 15:11 12/30/18 15:11 12/30/18 15:11 12/30/18 15:11 General appearance: Present: no acute distress Results - Labs CBC & Chem 7: 12/30/18 04:45 12/30/18 04:45 Labs: Laboratory Last Values WBC 7.0 K/mm3 (4.5-11.0) 12/30/18 04:45 RBC 4.09 M/mm3 (3.65-5.03) 12/30/18 04:45 Hgb 12.2 gm/dl (11.8-15.2) 12/30/18 04:45 Hct 36.9 % (35.5-45.6) 12/30/18 04:45 MCV 90 fl (84-94) 12/30/18 04:45 MCH 30 pg (28-32) 12/30/18 04:45 MCHC 33 % (32-34) 12/30/18 04:45 RDW 13.2 % (13.2-15.2) 12/30/18 04:45 Plt Count 128 K/mm3 (140-440) L 12/30/18 04:45 Lymph % (Auto) 20.4 % (13.4-35.0) 12/30/18 04:45 [place] % (Auto) 7.9 % (0.0-7.3) H 12/30/18 04:45 Eos % (Auto) 3.8 % (0.0-4.3) 12/30/18 04:45 Baso % (Auto) 0.9 % (0.0-1.8) 12/30/18 04:45 Lymph # 1.4 K/mm3 (1.2-5.4) 12/30/18 04:45 [place] # 0.6 K/mm3 (0.0-0.8) 12/30/18 04:45 Eos # 0.3 K/mm3 (0.0-0.4) 12/30/18 04:45 Baso # 0.1 K/mm3 (0.0-0.1) 12/30/18 04:45 Seg Neutrophils % 67.0 % (40.0-70.0) 12/30/18 04:45 Seg Neutrophils # 4.7 K/mm3 (1.8-7.7) 12/30/18 04:45 PT 14.2 Sec. (12.2-14.9) 12/29/18 16:43 INR 1.11 (0.87-1.13) 12/29/18 16:43 APTT 30.0 Sec. (24.2-36.6) 12/29/18 16:43 D-Dimer 410.49 ng/mlDDU (0-234) H 12/29/18 17:02 Sodium 141 mmol/L (137-145) 12/30/18 04:45 Potassium 3.3 mmol/L (3.6-5.0) L 12/30/18 04:45 Chloride 100.3 mmol/L (98-107) 12/30/18 04:45 Carbon Dioxide 25 mmol/L (22-30) 12/30/18 04:45 Anion Gap 19 mmol/L 12/30/18 04:45 BUN 24 mg/dL (9-20) H 12/30/18 04:45 Creatinine 2.7 mg/dL (0.8-1.5) H 12/30/18 04:45 Estimated GFR 36 ml/min 12/30/18 04:45 BUN/Creatinine Ratio 9 % 12/30/18 04:45 Glucose 107 mg/dL (75-100) H 12/30/18 04:45 Calcium 8.8 mg/dL (8.4-10.2) 12/30/18 04:45 Phosphorus 3.70 mg/dL (2.5-4.5) 12/29/18 16:43 Magnesium 2.00 mg/dL (1.7-2.3) 12/29/18 16:43 Total Bilirubin 0.40 mg/dL (0.1-1.2) 12/29/18 16:43 AST 24 units/L (5-40) 12/29/18 16:43 ALT 24 units/L (7-56) 12/29/18 16:43 Alkaline Phosphatase 68 units/L (35-129) 12/29/18 16:43 Total Creatine Kinase 562 units/L (55-170) H 12/30/18 07:50 CK-MB (CK-2) 5.1 ng/mL (0.0-4.0) H 12/30/18 07:50 CK-MB (CK-2) Rel Index 0.9 (0-4) 12/30/18 07:50 Troponin T 0.061 ng/mL (0.00-0.029) H 12/30/18 07:50 NT-Pro-B Natriuret Pep 2257 pg/mL (0-450) H 12/29/18 16:43 Total Protein 6.4 g/dL (6.3-8.2) 12/29/18 16:43 Albumin 3.7 g/dL (3.9-5) L 12/29/18 16:43 Albumin/Globulin Ratio 1.4 % 12/29/18 16:43 Triglycerides 49 mg/dL (2-149) 12/29/18 16:43 Cholesterol 130 mg/dL (50-199) 12/29/18 16:43 LDL Cholesterol Direct 64 mg/dL (50-130) 12/29/18 16:43 HDL Cholesterol 58 mg/dL (40-59) 12/29/18 16:43 Cholesterol/HDL Ratio 2.24 % 12/29/18 16:43 Active Medications - Current Medications Current Medications: Generic Name Dose Route Start Last Admin Trade Name Freq PRN Reason Stop Dose Admin Acetaminophen 650 mg 12/30/18 01:41 Tylenol PO Q4H PRN Pain MILD(1-3)/Fever >100.5/WEST Amlodipine Besylate 10 mg 12/30/18 11:00 12/30/18 11:00 Amlodipine PO 10 mg DAILY DARNELL Administration Aspirin 81 mg 12/31/18 10:00 Baby Aspirin PO QDAY DARNELL Hydralazine HCl 100 mg 12/30/18 14:00 12/30/18 14:00 Apresoline PO 100 mg QID DARNELL Administration Nicardipine HCl 50 mg/ Sodium 250 mls @ 25 mls/hr 12/30/18 03:00 12/30/18 14:30 Chloride IV 0 mg/hr TITR DARNELL 0 mls/hr Titration Protocol 5 MG/HR Labetalol HCl 300 mg 12/30/18 14:00 12/30/18 14:00 Labetalol PO 300 mg TID DARNELL Administration Ondansetron HCl 4 mg 12/30/18 01:41 Zofran IV Q8H PRN Nausea And Vomiting Oxycodone/Acetaminophen 1 tab 12/30/18 01:41 Percocet 5/325 PO Q6H PRN Pain, Moderate (4-6) Sodium Chloride 10 ml 12/30/18 10:00 12/30/18 09:45 Sodium Chloride Flush Syringe 10 Ml IV 10 ml BID DARNELL Administration Sodium Chloride 10 ml 12/30/18 01:41 Sodium Chloride Flush Syringe 10 Ml IV PRN PRN LINE FLUSH
[2018-12-31] MEDS ORDERED: ASPIRIN 81 MG TAB CHEW PO SCH (10:00)
[2018-12-31] MEDS: hydrALAZINE 100 MG TAB PO SCH ×3 (10:05→17:18)
[2018-12-31] MEDS: amLODIPine 10 MG TAB PO SCH (10:06)
[2018-12-31] MEDS ORDERED: hydrALAZINE 20 MG/1 ML INJ IV PRN (11:05)
--- NOTE | 2018-12-31 12:05 | Progress Note ---
Assessment and Plan Echo reviewed - EF 50-55%, impaired relaxation, severe LVH, small pericardial effusion, RVSP 32mmHg. DDimer was found to be elevated - V/Q scan indeterminate prob for PE. BLE dopplers pending. Pt may require additional imaging to r/o PE if his renal function will permit. Troponins are noted to be minimally elevated, currently nonspecific in setting of renal insufficiency and HTN. Chest pain and dyspnea resolved. We can consider stress test as OP. Recommend OP sleep study. Currently stable cardiac status. Nothing further to add from cardiac perspective at this time. Will sign off. Recommend follow up in our [facility] office with Dr. Fernandez within 1-2 weeks of discharge ([phone]). The patient has been seen in conjunction with Dr. Briggs who agrees with the assessment and plan of care. - Patient Problems (1) Hypertensive emergency Current Visit: Yes Status: Acute (2) Chest pain Current Visit: Yes Status: Resolved (3) Dyspnea Current Visit: Yes Status: Resolved (4) Elevated d-dimer Current Visit: Yes Status: Acute (5) Pulmonary edema Current Visit: Yes Status: Acute Qualifiers: Chronicity: acute Qualified Code(s): J81.0 - Acute pulmonary edema (6) Renal failure Current Visit: Yes Status: Chronic Qualifiers: Renal failure chronicity: chronic Chronic kidney disease stage: stage 3 (moderate) Qualified Code(s): N18.3 - Chronic kidney disease, stage 3 (moderate) (7) Hypokalemia Current Visit: Yes Status: Acute (8) Elevated troponin Current Visit: Yes Status: Acute (9) Hypertensive heart disease Current Visit: Yes Status: Chronic Subjective Date of service: 12/31/18 Principal diagnosis: A/CKD Interval history: pt resting in bed, states he is feeling better today. no sob or cp. BPs improving. mother at bedside. Objective Last Vital Signs Temp 98.6 F 12/31/18 03:40 Pulse 71 12/31/18 10:06 Resp 18 12/31/18 03:40 BP 181/102 12/31/18 10:06 Pulse Ox 93 12/31/18 03:40 - Physical Examination General: No Apparent Distress HEENT: Positive: PERRL, Normocephaly, Mucus Membranes Moist Neck: Positive: neck supple, trachea midline Cardiac: Positive: Reg Rate and Rhythm, S1/S2 Lungs: Positive: Decreased Breath Sounds Neuro: Positive: Grossly Intact Abdomen: Negative: Tender Skin: Negative: Rash Musculoskeletal: No Pain Extremities: Absent: edema - Imaging and Cardiology EKG: report reviewed, image reviewed Echo: pending - EKG Sinus rhythms and dysrhythmias: sinus rhythm
[2018-12-31] MEDS ORDERED: POTASSIUM CHLORIDE ER 20 MEQ TAB PO ONE (12:06)
[2018-12-31 12:08] LABS: % Iron Saturation 24.27 %
[2018-12-31 13:45] VITALS: BP 154/80
--- NOTE | 2018-12-31 14:10 | Progress Note ---
Assessment and Plan Patient is alert and awake. Has no complaints and denies any shortness of breath, cough, sore throat or nasal congestion. Patient is breathing on room air and O2 saturation is 99%. Patient had V/Q reported intermediate probability of Pulmonary Embolism However Doppler studies of the lower extremities obtained and reported negative bilaterally for DVT - Patient Problems (1) Pulmonary edema Status: Acute Qualifiers: Chronicity: acute Qualified Code(s): J81.0 - Acute pulmonary edema Plan to address problem: Pulmonary Edema has improved Patient given Lasix 40 mg Recommend ABGs (2) Chest pain Status: Resolved Plan to address problem: Management as per Cardiology (3) Hypertensive emergency Status: Acute Plan to address problem: Management as per primary team (4) Hypertensive heart disease Status: Chronic Plan to address problem: management as per Cardiology (5) Renal failure Status: Chronic Qualifiers: Renal failure chronicity: chronic Chronic kidney disease stage: stage 3 ( moderate) Qualified Code(s): N18.3 - Chronic kidney disease, stage 3 (mod erate) Plan to address problem: management was per nephrology Subjective Date of service: 12/31/18 Principal diagnosis: A/CKD Interval history: Patient is alert and awake. Has no complaints and denies any shortness of breath, cough, sore throat or nasal congestion. Patient is breathing on room air and O2 saturation is 99%. Patient had V/Q reported intermediate probability of Pulmonary Embolism However Doppler studies of the lower extremities obtained and reported negative bilaterally for DVT Objective Vital Signs - 12hr 12/31/18 12/31/18 12/31/18 03:40 07:56 10:00 Temperature 98.6 F Pulse Rate 73 83 Pulse Rate [ 71 Apical] Pulse Rate [ 71 Left Dorsalis Pedis] Pulse Rate [ 71 Left Radial] Pulse Rate [ 71 Right Dorsalis Pedis] Pulse Rate [ 71 Right Radial] Respiratory 18 18 Rate Blood Pressure 169/95 173/93 O2 Sat by Pulse 93 99 Oximetry 12/31/18 12/31/18 10:06 13:44 Temperature Pulse Rate 71 78 Pulse Rate [ Apical] Pulse Rate [ Left Dorsalis Pedis] Pulse Rate [ Left Radial] Pulse Rate [ Right Dorsalis Pedis] Pulse Rate [ Right Radial] Respiratory Rate Blood Pressure 181/102 154/80 O2 Sat by Pulse Oximetry Constitutional: no acute distress, alert, other (obese) Eyes: non-icteric ENT: oropharynx moist Neck: supple, no lymphadenopathy, no JVD Effort: normal Ascultation: Bilateral: rales Cardiovascular: regular rate and rhythm, other (S1,S2, no murmurs, gallops or rubs) Gastrointestinal: normoactive bowel sounds, soft, non-tender, non-distended Integumentary: normal Extremities: no cyanosis, no edema, pink and warm, pulses normal, no ischemia or petechiae Neurologic: normal mental status, non-focal exam, pupils equal and round, CN II- XII normal, motor strength normal and Psychiatric: mood appropriate, affect normal CBC and BMP: 12/30/18 04:45 12/30/18 04:45 ABG, PT/INR, D-dimer: PT/INR, D-dimer PT 14.2 Sec. (12.2-14.9) 12/29/18 16:43 INR 1.11 (0.87-1.13) 12/29/18 16:43 D-Dimer 410.49 ng/mlDDU (0-234) H 12/29/18 17:02 Abnormal lab findings: Abnormal Labs 12/29/18 12/29/18 12/29/18 16:43 16:43 16:43 Hgb 11.6 L RDW 13.1 L Plt Count 135 L [place] % (Auto) 7.7 H Seg Neutrophils % 72.9 H D-Dimer Potassium 3.5 L BUN 26 H Creatinine 2.7 H Glucose 101 H TIBC Total Creatine Kinase CK-MB (CK-2) Troponin T 0.054 H NT-Pro-B Natriuret Pep 2257 H Albumin 3.7 L 12/29/18 12/29/18 12/30/18 17:02 18:37 04:45 Hgb RDW Plt Count 128 L [place] % (Auto) 7.9 H Seg Neutrophils % D-Dimer 410.49 H Potassium BUN Creatinine Glucose TIBC Total Creatine Kinase CK-MB (CK-2) Troponin T 0.053 H NT-Pro-B Natriuret Pep Albumin 12/30/18 12/30/18 12/30/18 04:45 04:45 07:50 Hgb RDW Plt Count [place] % (Auto) Seg Neutrophils % D-Dimer Potassium 3.3 L BUN 24 H Creatinine 2.7 H Glucose 107 H TIBC Total Creatine Kinase 576 H 562 H CK-MB (CK-2) 5.5 H 5.1 H Troponin T 0.051 H 0.061 H NT-Pro-B Natriuret Pep Albumin 12/31/18 11:26 Hgb RDW Plt Count [place] % (Auto) Seg Neutrophils % D-Dimer Potassium BUN Creatinine Glucose TIBC 239 L Total Creatine Kinase CK-MB (CK-2) Troponin T NT-Pro-B Natriuret Pep Albumin Chest x-ray: report reviewed (Cardiomegaly. Bilateral pulmonary inflitrates.), image reviewed Additional Studies: V/Q scan 12/29/2018 Indeterminate probability for pulmonary embolism. There are mismatched ventilation/perfusion defects, but there are also radiographic abnormalities in the regions of diminished perfusion Lower Extremities Doppler 12/31/2018: No evidence of DVT bilaterally.
--- NOTE | 2018-12-31 15:26 | Discharge Summary ---
Providers - Providers Date of Admission: 12/29/18 20:22 Attending physician: CAROLYN ALLEN MD 12/30/18 01:41 Consult to Physician [CONS] Routine Comment: Consulting Provider: ABRIL MARTINEZ Physician Instructions: Reason For Exam: cp 12/30/18 01:59 Consult to Physician [CONS] Routine Comment: Consulting Provider: COLLEEN SIMON Physician Instructions: Reason For Exam: intermed PE Primary care physician: [employer] Hospitalization Condition: Stable Hospital course: 23-year-old man with history of hypertension, chronic kidney disease .He presented to the hospital with chest pain. He was found to have hypertensive urgency, he was in the ICU on IV drips. His blood pressure improved, and he was transitioned to oral medications. Patient admitted that he had not been compliant with his medications as he ran out of 1 of his pills, and that his job does not allow him to take a bag into work and therefore he does not take his meds while at work, he works 12-hour shift or longer. -Preventative health counseling performed for 17 minutes Patient was given prescriptions for all his medications Patient was advised to take his meds in the clear a Ziploc bag to work and at a workplace cannot prevented patient from bringing his medications with him to work -VQ scan was intermittent probability for PE, lower extremity Dopplers were negative, had very low suspicion of PE so further work-up was not indicated -Cardiology was consulted who agreed with the management, echo showed preserved EF. Diagnosis Hypertensive urgency Chronic kidney disease stage III-IV Chest pain due to hypertensive urgency Disposition: - TO HOME OR SELFCARE Time spent for discharge: 35 minutes Core Measure Documentation - Palliative Care Palliative Care/ Comfort Measures: Not Applicable - Core Measures Any of the following diagnoses?: none Exam - Constitutional Vitals: Temp Pulse Resp BP Pulse Ox 98.6 F 78 18 154/80 99 12/31/18 03:40 12/31/18 13:44 12/31/18 10:00 12/31/18 13:44 12/31/18 10:00 General appearance: Present: no acute distress, well-nourished - EENT Eyes: Present: PERRL ENT: hearing intact, clear oral mucosa - Neck Neck: Present: supple, normal ROM - Respiratory Respiratory effort: normal Respiratory: bilateral: CTA - Cardiovascular Heart Sounds: Present: S1 & S2. Absent: rub, click - Extremities Extremities: pulses symmetrical, No edema Peripheral Pulses: within normal limits - Abdominal General gastrointestinal: Present: soft, non-tender, non-distended, normal bowel sounds Male genitourinary: Present: normal - Integumentary Integumentary: Present: clear, warm, dry - Musculoskeletal Musculoskeletal: gait normal, strength equal bilaterally - Psychiatric Psychiatric: appropriate mood/affect, intact judgment & insight - Neurologic Neurologic: CNII-XII intact, moves all extremities Plan Follow up with: PRIMARY CARE,MD [Primary Care Provider] - 7 Days Forms: Work/School Release Form(ED) Prescriptions: Spironolactone [Aldactone] 25 mg PO QDAY #90 tablet amLODIPine 10 mg PO DAILY #90 tab amLODIPine 10 mg PO DAILY #90 hydrALAZINE [Apresoline TAB] 100 mg PO QID #360 tab Labetalol HCl [Labetalol 300mg TAB] 300 mg PO TID #270 tablet Labetalol 300mg TAB 1 tab PO TID #270
--- NOTE | 2018-12-31 15:50 | Vascular Lab Report ---
DUPLEX DOPPLER LOWER EXTREMITY VEINS, BILATERAL INDICATION: Bilateral lower extremity edema. TECHNIQUE: Duplex doppler imaging was performed through the veins of both lower extremities using ve nous compression and other maneuvers. COMPARISON: No relevant prior imaging study available. FINDINGS: Right Common femoral vein: Negative. Right Superficial femoral vein: Negative. Right Popliteal vein: Negative. Right Calf veins: Negative. Left Common femoral vein: Negative. Left Superficial femoral vein: Negative. Left Popliteal vein: Negative. Left Calf veins: Negative. Additional findings: None.. IMPRESSION: No sonographic evidence for DVT in either lower extremity. Signer Name: Dusty Osei Jr, MD Signed: 12/31/2018 3:45 PM Workstation Name: [id number]
== END 2018-12-31 18:10 | disposition home or self-care (01) | DRG 175 ==
LOC: ED 15:48 → 4A 20:22 → OBSVTOIN 20:22 → 4A 20:48 → CC1 12-30 02:36 → 4A 12-30 18:36
PROVIDERS: ADMIT Internal Medicine; ATTEND Internal Medicine
DX: I26.99 Other pulmonary embolism without acute cor pulmonale (principal); J81.0 Acute pulmonary edema; I16.1 Hypertensive emergency; I13.0 Hypertensive heart and chronic kidney disease with heart failure and stage 1 through stage 4 chronic kidney disease, or unspecified chronic kidney disease; N18.3 Chronic kidney disease, stage 3 (moderate); E87.6 Hypokalemia; E66.01 Morbid (severe) obesity due to excess calories; I50.9 Heart failure, unspecified; D69.6 Thrombocytopenia, unspecified; R79.89 Other specified abnormal findings of blood chemistry; Z82.49 Family history of ischemic heart disease and other diseases of the circulatory system; Z79.899 Other long term (current) drug therapy; Z68.39 Body mass index [BMI] 39.0-39.9, adult
CPT/HCPCS: 36415; 71046; 78582; 80048; 80053; 80061; 82550; 82553; 82728; 83550; 83735; 83880; 84100; 84443; 84484; 85025; 85379; 85610; 85730; 93005; 93010; 93306; 93970; 96360; G0378; A9540; A9558; J0360; J1650; J1940; J2270; J2405; J7030; J7050

== ENCOUNTER 2020-02-07 11:03 | Emergency (ER) | payer MEDICAID, OTHER ==
[2020-02-07 11:48] VITALS: BP 145/108
--- NOTE | 2020-02-07 11:50 | Emergency Department Report ---
ED General Adult HPI - General Chief complaint: Extremity Injury, Lower Stated complaint: RT ANKLE INJURY Time Seen by Provider: 02/07/20 11:45 Source: patient Mode of arrival: Ambulatory Limitations: No Limitations - History of Present Illness Initial comments: 24-year-old -[place] male patient presents with complaints of right ankle pain after a trip and fall injury yesterday. He denies any numbness/tingling or difficulty moving his limb. Pain worsens with ambulation. He rates his pain as a 8/10 in severity. Denies any bruising or redness to the ankle. - Related Data Previous Rx's Medication Instructions Recorded Last Taken Type Labetalol 300mg TAB 1 tab PO TID #270 12/31/18 Unknown Rx Labetalol HCl [Labetalol 300mg TAB] 300 mg PO TID #270 tablet 12/31/18 Unknown Rx Spironolactone [Aldactone] 25 mg PO QDAY #90 tablet 12/31/18 Unknown Rx amLODIPine 10 mg PO DAILY #90 12/31/18 Unknown Rx amLODIPine 10 mg PO DAILY #90 tab 12/31/18 Unknown Rx hydrALAZINE [Apresoline TAB] 100 mg PO QID #360 tab 12/31/18 Unknown Rx Ibuprofen [Motrin 800 MG tab] 800 mg PO Q8HR PRN #20 tablet 02/07/20 Unknown Rx Allergies Allergy/AdvReac Type Severity Reaction Status Date / Time No Known Allergies Allergy Verified 11/18/13 00:15 ED Review of Systems ROS: Stated complaint: RT ANKLE INJURY Other details as noted in HPI Constitutional: denies: malaise Cardiovascular: denies: chest pain Musculoskeletal: arthralgia Neurological: denies: numbness, paresthesias, abnormal gait ED Past Medical Hx - Past Medical History Previous Medical History?: Yes Hx Hypertension: Yes Hx Renal Disease: Yes (CKD stage 3) - Social History Smoking Status: Never Smoker - Medications Home Medications: Home Medications Medication Instructions Recorded Confirmed Last Taken Type Labetalol 300mg TAB 1 tab PO TID #270 12/31/18 Unknown Rx Labetalol HCl [Labetalol 300mg TAB] 300 mg PO TID #270 tablet 12/31/18 Unknown Rx Spironolactone [Aldactone] 25 mg PO QDAY #90 tablet 12/31/18 Unknown Rx amLODIPine 10 mg PO DAILY #90 12/31/18 Unknown Rx amLODIPine 10 mg PO DAILY #90 tab 12/31/18 Unknown Rx hydrALAZINE [Apresoline TAB] 100 mg PO QID #360 tab 12/31/18 Unknown Rx Ibuprofen [Motrin 800 MG tab] 800 mg PO Q8HR PRN #20 tablet 02/07/20 Unknown Rx ED Physical Exam - General Limitations: No Limitations General appearance: alert, in no apparent distress, obese - Head Head exam: Present: atraumatic, normocephalic - Eye Eye exam: Absent: scleral icterus - Neck Neck exam: Present: full ROM - Respiratory Respiratory exam: Absent: respiratory distress - Cardiovascular Cardiovascular Exam: Present: regular rate - Extremities Exam Extremities exam: Present: other (Tenderness to palpation noted to the right lateral malleolus and lower fibula without erythema, bruising, or swelling noted; pedal pulses normal; patient has normal range of motion of the ankle) - Neurological Exam Neurological exam: Present: alert, oriented X3, normal gait - Psychiatric Psychiatric exam: Present: normal affect, normal mood - Skin Skin exam: Present: warm, dry, intact, normal color. Absent: rash ED Course Vital Signs 02/07/20 11:48 Temperature 98.1 F Pulse Rate 78 Respiratory 16 Rate Blood Pressure 145/108 [Right] O2 Sat by Pulse 97 Oximetry ED Medical Decision Making - Radiology Data Radiology results: report reviewed cc: CYNTHIA Tatum Time In Minutes: RIGHT ANKLE 3 VIEWS INDICATION / CLINICAL INFORMATION: MAIN. COMPARISON: None available. FINDINGS: Soft tissue swelling over the lateral malleolus suggests ligamentous injury, but I see no fracture. - Medical Decision Making 24-year-old -[place] male patient presents with complaints of right ankle pain after a trip and fall injury yesterday. He denies any numbness/tingling or difficulty moving his limb. Pain worsens with ambulation. He rates his pain as a 8/10 in severity. Denies any bruising or redness to the ankle. X-rays negative for fracture. Will treat for ankle sprain. Patient instructed on RICE method of treatment along with NSAIDs. Recommend follow-up with orthopedics as needed. Strict return precautions were discussed in detail with patient who verbalized understanding. Critical care attestation.: If time is entered above; I have spent that time in minutes in the direct care of this critically ill patient, excluding procedure time. ED Disposition Clinical Impression: Elevated blood pressure reading in office without diagnosis of hypertension Right ankle sprain Qualifiers: Encounter type: initial encounter Involved ligament of ankle: other ligament Qualified Code(s): S93.491A - Sprain of other ligament of right ankle, initial encounter Disposition: TO HOME OR SELFCARE Is pt being admited?: No Condition: Stable Instructions: Ankle Sprain, Elastic Bandage and RICE Therapy, Hypertension, Adult Prescriptions: Ibuprofen [Motrin 800 MG tab] 800 mg PO Q8HR PRN #20 tablet PRN Reason: pain Referrals: [facility] [Provider Group] - as needed
--- NOTE | 2020-02-07 12:51 | XRay Report ---
RIGHT ANKLE 3 VIEWS INDICATION / CLINICAL INFORMATION: MAIN. COMPARISON: None available. FINDINGS: Soft tissue swelling over the lateral malleolus suggests ligamentous injury, but I see no fracture. Signer Name: Abhishek Wall MD Signed: 02/07/2020 12:47 PM Workstation Name: [id number]
== END 2020-02-07 13:43 | disposition home or self-care (01) ==
LOC: ED 11:03
DX: S93.401A Sprain of unspecified ligament of right ankle, initial encounter (principal); I10 Essential (primary) hypertension; Z79.1 Long term (current) use of non-steroidal anti-inflammatories (NSAID); Z79.899 Other long term (current) drug therapy; W01.0XXA Fall on same level from slipping, tripping and stumbling without subsequent striking against object, initial encounter; Y93.89 Activity, other specified; Y92.89 Other specified places as the place of occurrence of the external cause; Y99.8 Other external cause status

== ENCOUNTER 2020-11-01 23:02 | Emergency (ER) | payer OTHER ==
--- NOTE | 2020-11-02 00:10 | Emergency Department Report ---
Chief Complaint: Abdominal Pain Stated Complaint: LOWER ABD PAIN CKD STAGE 3 - HPI History of Present Illness: 25-year-old male present with 1 day of lower abdominal pain. Patient denies dysuria or fever. Patient denies nausea vomiting or diarrhea. Patient states his pain has been constant MSE screening note: Focused history and physical exam performed. Abd: Mild tenderness to palpation in the right lower quadrant, suprapubic and left lower quadrant. There is no rebound or guarding. Due to findings the following was ordered: CBC, CMP, lipase, UA ED Disposition for MSE Condition: Stable
[2020-11-02 00:46] LABS: Bilirubin,Urine NEG (Negative); Blood,Urine NEG (Negative); Color,Urine Yellow (Yellow); Mucus,Urine FEW /HPF; Urobilinogen,Urine < 2.0 mg/dL (<2.0)
[2020-11-02 01:15] LABS: Basophils % (Auto) 0.2 % (0.0-1.8); Eosinophils # (Auto) 0.3 K/mm3 (0.0-0.4); Hematocrit 39.4 % (35.5-45.6); Hemoglobin 12.8 gm/dl (11.8-15.2); Lymphocytes # (Auto) 0.7 K/mm3 (1.2-5.4); Lymphocytes % (Auto) 4.8 % (13.4-35.0); Mean Corpuscular HGB Conc 32 % (32-34); Mean Corpuscular Volume 92 fl (84-94); Monocytes % (Auto) 6.6 % (0.0-7.3); Platelet Count 194 K/mm3 (140-440); Red Blood Count 4.28 M/mm3 (3.65-5.03)
[2020-11-02 01:22] LABS: Albumin 4.6 g/dL (3.9-5); Calcium 9.4 mg/dL (8.4-10.2)
[2020-11-02] MEDS ORDERED: MORPHINE 4 MG/1 ML INJ IV ONE (01:39)
[2020-11-02] MEDS ORDERED: SODIUM CHLORIDE 0.9% 1000 ML 1,000 ML IV ONE (01:39)
[2020-11-02] MEDS ORDERED: ONDANSETRON 4 MG/2 ML INJ IV ONE (01:39)
--- NOTE | 2020-11-02 01:47 | Emergency Department Report ---
ED Abdominal Pain HPI - General Chief Complaint: Abdominal Pain Stated Complaint: LOWER ABD PAIN CKD STAGE 3 Source: patient Mode of arrival: Ambulatory Limitations: No Limitations - History of Present Illness Initial Comments: Patient is a 25-year-old -[place] male with a history of morbid obesity, hypertension and stage III chronic kidney disease who presents to the ED with complaint of acute onset persistent severe diffuse low abdominal pain, RLQ>LLQ and suprapubic area for the last 8 hours. Patient states that he also had a single episode of nausea and vomiting upon arrival in the ED because of worsening pain. Patient denies hematuria, dysuria, urinary frequency and urgency, penile discharge, low back pain, chest pain or shortness of breath, fever, chills, diarrhea, traumatic injury, back pain or numbness and tingling or weakness of lower extremities bilaterally. MD Complaint: abdominal pain (Diffuse low abdominal pain, worse on right lower quadrant and left lower quadrant), other (Nausea and vomiting) -: Sudden, hour(s) (8) Location: LLQ, RLQ, suprapubic Radiation: LLQ, RLQ, epigastric Migration to: no migration Severity: severe Severity scale (0 -10): 8 Quality: cramping, sharp Consistency: constant Improves With: nothing Worsens With: nothing Associated Symptoms: denies other symptoms, nausea, vomiting, anorexia. denies: diarrhea, fever, chills, constipation, dysuria, hematemesis, hematochezia, melena, hematuria, syncope - Related Data Previous Rx's Medication Instructions Recorded Last Taken Type Labetalol 300mg TAB 1 tab PO TID #270 12/31/18 Unknown Rx Labetalol HCl [Labetalol 300mg TAB] 300 mg PO TID #270 tablet 12/31/18 Unknown Rx Spironolactone [Aldactone] 25 mg PO QDAY #90 tablet 12/31/18 Unknown Rx amLODIPine 10 mg PO DAILY #90 12/31/18 Unknown Rx amLODIPine 10 mg PO DAILY #90 tab 12/31/18 Unknown Rx hydrALAZINE [Apresoline TAB] 100 mg PO QID #360 tab 12/31/18 Unknown Rx Ibuprofen [Motrin 800 MG tab] 800 mg PO Q8HR PRN #20 tablet 02/07/20 Unknown Rx Dicyclomine [Bentyl] 20 mg PO Q6H #24 tablet 11/02/20 Unknown Rx Docusate Sodium [Dok] 100 mg PO DAILY #60 tablet 11/02/20 Unknown Rx Magnesium Citrate 295 ml PO ONCE #1 bottle 11/02/20 Unknown Rx Ondansetron [Zofran Odt] 4 mg PO Q6HR PRN #15 tab.rapdis 11/02/20 Unknown Rx Allergies Allergy/AdvReac Type Severity Reaction Status Date / Time No Known Allergies Allergy Verified 11/02/20 00:12 ED Review of Systems ROS: Stated complaint: LOWER ABD PAIN CKD STAGE 3 Other details as noted in HPI Constitutional: denies: chills, fever Eyes: denies: eye pain, eye discharge, vision change ENT: denies: ear pain, throat pain Respiratory: denies: cough, shortness of breath, wheezing Cardiovascular: denies: chest pain, palpitations Endocrine: no symptoms reported Gastrointestinal: abdominal pain (Diffuse lower abdominal pain), nausea, vomiting. denies: diarrhea Genitourinary: denies: urgency, dysuria, frequency, hematuria, testicular pain, testicular mass Musculoskeletal: denies: back pain, joint swelling, arthralgia Skin: denies: rash, lesions Neurological: denies: headache, weakness, paresthesias Psychiatric: denies: anxiety, depression Hematological/Lymphatic: denies: easy bleeding, easy bruising ED Past Medical Hx - Past Medical History Hx Hypertension: Yes Hx Renal Disease: Yes (CKD stage 3) - Social History Smoking Status: Never Smoker - Medications Home Medications: Home Medications Medication Instructions Recorded Confirmed Last Taken Type Labetalol 300mg TAB 1 tab PO TID #270 12/31/18 Unknown Rx Labetalol HCl [Labetalol 300mg TAB] 300 mg PO TID #270 tablet 12/31/18 Unknown Rx Spironolactone [Aldactone] 25 mg PO QDAY #90 tablet 12/31/18 Unknown Rx amLODIPine 10 mg PO DAILY #90 12/31/18 Unknown Rx amLODIPine 10 mg PO DAILY #90 tab 12/31/18 Unknown Rx hydrALAZINE [Apresoline TAB] 100 mg PO QID #360 tab 12/31/18 Unknown Rx Ibuprofen [Motrin 800 MG tab] 800 mg PO Q8HR PRN #20 tablet 02/07/20 Unknown Rx Dicyclomine [Bentyl] 20 mg PO Q6H #24 tablet 11/02/20 Unknown Rx Docusate Sodium [Dok] 100 mg PO DAILY #60 tablet 11/02/20 Unknown Rx Magnesium Citrate 295 ml PO ONCE #1 bottle 11/02/20 Unknown Rx Ondansetron [Zofran Odt] 4 mg PO Q6HR PRN #15 tab.rapdis 11/02/20 Unknown Rx ED Physical Exam - General Limitations: No Limitations General appearance: alert, in no apparent distress - Head Head exam: Present: atraumatic, normocephalic, normal inspection - Eye Eye exam: Present: normal appearance, PERRL, EOMI Pupils: Present: normal accommodation - ENT ENT exam: Present: normal exam, normal orophraynx, mucous membranes moist, TM's normal bilaterally, normal external ear exam - Neck Neck exam: Present: normal inspection, full ROM - Respiratory Respiratory exam: Present: normal lung sounds bilaterally. Absent: respiratory distress, wheezes, rales, rhonchi, chest wall tenderness, accessory muscle use, decreased breath sounds, other - Cardiovascular Cardiovascular Exam: Present: regular rate, normal rhythm, normal heart sounds. Absent: systolic murmur, diastolic murmur, rubs, gallop - GI/Abdominal GI/Abdominal exam: Present: soft, tenderness (Palpable diffuse lower abdominal tenderness, RLQ>LLQ), normal bowel sounds. Absent: guarding, rebound, hyperactive bowel sounds, hypoactive bowel sounds, organomegaly - Extremities Exam Extremities exam: Present: normal inspection, full ROM, normal capillary refill - Back Exam Back exam: Present: normal inspection, full ROM. Absent: tenderness, CVA tenderness (R), CVA tenderness (L), muscle spasm, paraspinal tenderness - Neurological Exam Neurological exam: Present: alert, oriented X3, CN II-XII intact, normal gait, reflexes normal - Psychiatric Psychiatric exam: Present: normal affect, normal mood - Skin Skin exam: Present: warm, dry, intact, normal color. Absent: rash ED Course Vital Signs 11/02/20 00:09 Temperature 98.1 F Pulse Rate 82 Respiratory 18 Rate Blood Pressure 183/106 [Left] O2 Sat by Pulse 98 Oximetry ED Medical Decision Making - Lab Data Result diagrams: 11/02/20 00:46 11/02/20 00:46 - Radiology Data Radiology results: report reviewed, image reviewed [facility] [address] [place] [address] Cat Scan Report Signed Patient: AARON YAO MR#: [id number] : 1995 Acct:[id number] Age/Sex: 25 / M ADM Date: 11/01/20 Loc: ED Attending Dr: Ordering Physician: DANICA RICE Date of Service: 11/02/20 Procedure(s): CT abdomen pelvis wo con Accession Number(s): [id number] cc: DANICA RICE CT ABDOMEN AND PELVIS WITHOUT CONTRAST INDICATION: Diffuse lower abdominal pain CONTRAST: Without IV COMPARISON: None available. All CT scans at this location are performed using CT dose reduction for ALARA by means of automated exposure control. NOTE: Resolution is decreased and artifact is introduced by the patient's size. FINDINGS: Lung bases are clear. No pneumoperitoneum is seen. Gallbladder and bile ducts appear within normal limits. No urinary tract calculi or evidence of obstruction are seen. Mild fatty infiltration of the liver is noted without significant enlargement. No masses are seen. No evidence of bowel obstruction is noted. Appendix is nonvisualized. Moderate amount of stool is seen in the right colon without dilatation. No inflammatory changes are seen. No lymphadenopathy is noted. No free fluid is seen. IMPRESSION: Evidence of mild right-sided constipation Signer Name: Jeremy Galindo MD Signed: 11/02/2020 2:46 AM Workstation Name: [id number] Transcribed By: GJ Dictated By: Jeremy Galindo MD Electronically Authenticated By: Jeremy Galindo MD Signed Date/Time: 11/02/20245 DD/ 0 TD/TT: - Medical Decision Making This is a 25-year-old -[place] male with a history of morbid obesity, hypertension and stage III chronic kidney disease who presents to the ED with complaint of acute onset persistent severe diffuse low abdominal pain, RLQ>LLQ and suprapubic area for the last 8 hours. Patient states that he also had a single episode of nausea and vomiting upon arrival in the ED because of worsening pain. In the ED, patient is alert and oriented x3 and is not in any distress. Patient was treated for pain in the ED and also given normal saline 1 L IV bolus x1. Lab test results were reviewed and are all nonactionable except for acute leukocytosis of 14,600 and BUN of 24 and creatinine of 2.9 which are all baseline based on the patient's chronic stage III kidney disease. Abdomen pelvis CT scan without contrast showed mild right-sided constipation without any acute abnormalities. On reevaluation, patient's pain is well controlled medication. Patient will discharge home on medications for pain as well as stool softeners and laxatives. Patient was advised to follow-up with his primary care physician in 5 to 7 days for reevaluation or return to the ED immediately if symptoms get worse. - Differential Diagnosis appendicitis; cystitis; colitis; diverticulitis; kidney stones, constipatio Critical care attestation.: If time is entered above; I have spent that time in minutes in the direct care of this critically ill patient, excluding procedure time. ED Disposition Clinical Impression: Nausea and vomiting in adult patient, Acute bilateral lower abdominal pain Constipation Qualifiers: Constipation type: other constipation type Qualified Code(s): K59.09 - Other constipation Disposition: 01 HOME / SELF CARE / HOMELESS Is pt being admited?: No Does the pt Need Aspirin: No Condition: Stable Instructions: Nausea and Vomiting, Adult, [id number], Abdominal Pain, Adult, [id number], Constipation, Adult, [id number] Additional Instructions: All lab test results were reviewed and are all nonactionable except for acute leukocytosis of 14,900, and BUN of 24 and creatinine of 2.9 which are all baseline due to chronic stage III kidney disease. The abdomen pelvis CT scan without contrast showed mild right-sided constipation. Therefore take medication with food, drink plenty of fluids and follow-up with your primary care physicia n in 7 to 10 days for reevaluation or return to the ED immediately if symptoms get worse. Prescriptions: Dicyclomine [Bentyl] 20 mg PO Q6H #24 tablet Docusate Sodium [Dok] 100 mg PO DAILY #60 tablet Magnesium Citrate 295 ml PO ONCE #1 bottle Ondansetron [Zofran Odt] 4 mg PO Q6HR PRN #15 tab.rapdis PRN Reason: Nausea Referrals: [facility] [Provider Group] - 7-10 days Forms: Work/School Release Form(ED) Time of Disposition: 01:50 Print Language: UZBEK
--- NOTE | 2020-11-02 02:51 | Cat Scan Report ---
CT ABDOMEN AND PELVIS WITHOUT CONTRAST INDICATION: Diffuse lower abdominal pain CONTRAST: Without IV COMPARISON: None available. All CT scans at this location are performed using CT dose reduction for ALARA by means of automated e xposure control. NOTE: Resolution is decreased and artifact is introduced by the patient's size. FINDINGS: Lung bases are clear. No pneumoperitoneum is seen. Gallbladder and bile ducts appear within normal limits. No urinary tract calculi or evidence of obstruction are seen. Mild fatty infiltration of the liver is noted without significant enlargement. No masses are seen. No evidence of bowel obst ruction is noted. Appendix is nonvisualized. Moderate amount of stool is seen in the right colon with out dilatation. No inflammatory changes are seen. No lymphadenopathy is noted. No free fluid is seen. IMPRESSION: Evidence of mild right-sided constipation Signer Name: Jeremy Galindo MD Signed: 11/02/2020 2:46 AM Workstation Name: [id number]
[2020-11-02 06:34] VITALS: BP 186/94
== END 2020-11-02 06:34 | disposition home or self-care (01) ==
LOC: ED 23:02
DX: K59.00 Constipation, unspecified (principal); R10.31 Right lower quadrant pain; R10.32 Left lower quadrant pain; R11.2 Nausea with vomiting, unspecified; I12.9 Hypertensive chronic kidney disease with stage 1 through stage 4 chronic kidney disease, or unspecified chronic kidney disease; N18.30 Chronic kidney disease, stage 3 unspecified
CPT/HCPCS: 36415; 74176; 80053; 81001; 83690; 85025; 96361; 96374; 96375; 99284; J2270; J2405; J7030